=== PATIENT | female | born 1960 | race Caucasian/White ===

== ENCOUNTER 2017-09-03 15:39 | Outpatient (CLI) | payer BC ==
[2017-09-03 16:44] LABS: Hemoglobin 12.6 g/dL (12.0-16.0); Mean Corpuscular HGB CONC 33.9 g/dL (32.0-36.0); Mean Corpuscular Hemoglobin 30.2 pg (27.0-31.0); Mean Platelet Volume 6.9 fL (7.4-10.4); Platelet Count 240 thou/uL (130-400); RBC Distribution Width 11.7 % (11.5-14.5); Red Blood Cell (RBC) Count 4.17 mill/uL (4.20-5.40); White Blood Cell (WBC) Count 5.9 thou/uL (4.8-10.8)
[2017-09-03 17:05] LABS: Anion Gap 11 mmol/L (10-20); BUN (Urea Nitrogen) 24 mg/dL (9.8-20.1); Calc. Creatinine Clearance 0 mL/min (70-130); Calcium 9.6 mg/dL (7.8-10.44); Carbon Dioxide 24 mmol/L (22-29); Chloride 108 mmol/L (98-107); Estimated GFR-MDRD 75; Glucose 96 mg/dL (70-105); Potassium 3.6 mmol/L (3.5-5.1); Sodium 139 mmol/L (136-145)
--- NOTE | 2017-09-05 17:37 | EKG ---
Test Reason : Blood Pressure : / mmHG Vent. Rate : 055 BPM Atrial Rate : 055 BPM P-R Int : 158 ms QRS Dur : 082 ms QT Int : 436 ms P-R-T Axes : 010 -05 020 degrees QTc Int : 417 ms Sinus bradycardia Inferior infarct , age undetermined Abnormal ECG No previous ECGs available Confirmed by DR. Luca CONNOLLY ([id number]) on 09/05/2017 5:37:17 PM Referred By: JIMMY Confirmed By:DR. Luca CONNOLLY
== END 2017-09-03 15:40 | disposition home or self-care (01) ==
LOC: LABBT 15:39
PROVIDERS: ATTEND Podiatrist Foot & Ankle Surgery
DX: Z01.818 Encounter for other preprocedural examination (principal); M72.2 Plantar fascial fibromatosis; M21.611 Bunion of right foot
CPT/HCPCS: 80048; 85027; 93005; 93010

== ENCOUNTER 2017-09-09 10:35 | Day surgery (SDC) | payer BC ==
[2017-09-03 16:04] VITALS: BMI 29.8
[2017-09-09] MEDS ORDERED: CEFAZOLIN/Water 2 GM/20 ML SYRINGE ONE (11:04)
[2017-09-09] MEDS ORDERED: Midazolam HCl 2 mg/2 ml Vial ONE ×2 (11:36→11:57)
[2017-09-09] MEDS ORDERED: Neomycin-Polymyxin 1 ML AMP ONE (11:37)
[2017-09-09] MEDS ORDERED: Bupivacaine 0.5% 10 ML VIAL ONE (11:37)
[2017-09-09] MEDS ORDERED: Fentanyl 250 MCG/5 ML VIAL ONE (11:57)
--- NOTE | 2017-09-09 15:08 | OP ---
DATE OF SURGERY: 09/09/2017 SURGEON: Shira Richard DPM. PREOPERATIVE DIAGNOSES: Bunion, right foot; plantar fasciitis, right foot; calcaneal heel spur, righ t foot. POSTOPERATIVE DIAGNOSES: Bunion, right foot; plantar fasciitis, right foot; calcaneal heel spur, rig ht foot. PROCEDURES PERFORMED: Brian bunionectomy, right foot; plantar fascial release, right foot; resectio n of calcaneal spur, right foot. ANESTHESIA: General with local foot block. HEMOSTASIS: Pneumatic ankle tourniquet at 250 mmHg. ESTIMATED BLOOD LOSS: Less than 10 mL MATERIALS: 2-0 Vicryl, 4-0 Monocryl, and 4-0 Prolene and #1 Synthes 3.0 x 26 mm headless compression screw. INJECTABLES: 30 mL of 0.5% Marcaine plain. PROCEDURE IN DETAIL: The patient was brought into the operating room and placed on the operating tab le in supine position. Well-padded pneumatic ankle tourniquet was placed about the patient's right a nkle. Following administration of IV anesthesia, local foot block was given utilizing 30 mL of 0.5% Marcaine plain. The foot was then scrubbed, prepped and draped in usual aseptic manner. Esmarch ban dage was used to exsanguinate the patient's right foot and the pneumatic ankle tourniquet was then in flated to 250 mmHg, which provided adequate hemostasis throughout the entire procedure. Next, attent ion was then directed to the dorsal aspect of the patient's first metatarsophalangeal joint where a 5 cm linear longitudinal incision was made over the dorsal aspect of the patient's first metatarsophal angeal joint. The incision was deepened through subcuticular structures with care being taken to ret ract all vital neurovascular structures. All bleeders were cauterized as necessary. Next, a T-type capsulotomy was performed exposing the head of the first metatarsal. The prominent medial bone shelf was then carefully resected and passed from the operative field. Next, a Chevron type osteotomy was performed utilizing a sagittal bone saw shifting the head into a more corrected lateral position, wa s held in place with temporary fixation of a guidewire. Next, utilizing techniques and principles of [employer] medical 3.0 x 26 mm screw was placed across the osteotomy site from dorsal, distal, proximal plantar. Fluoroscopy was used to assure proper alignment and correction, all were noted to be corre ct at this time. The remaining medial bone shelf was carefully resected and passed from the operativ e field. The wound was irrigated with copious amounts of sterile normal saline and mixture and th e skin was closed utilizing 2-0 Vicryl for capsular structures and 4-0 Monocryl and 4-0 Prolene for s kin closure. Next, attention was then directed to the medial aspect of the patient's right heel wher e a 3 cm linear longitudinal incision was made upon identification of the calcaneal spur utilizing fl uoroscopy. The incision was deepened through subcuticular structures with care being taken to retrac t all vital neurovascular structures. All bleeders were cauterized as necessary. Next, the medial b and of the plantar fascia was then carefully released from its attachment at the base of the calcaneu s. The calcaneal spur was then identified and carefully resected and passed from the operative field . Fluoroscopy was used to assure that no remaining heel spur remain. None was noted at this time. The wound was irrigated with copious amounts of sterile normal saline and mixture and the deep str uctures were closed utilizing 2-0 Vicryl and the skin was closed utilizing 4-0 Monocryl and 4-0 Prole ne. A light compressive dressing was placed about the patient's right foot and the pneumatic ankle t ourniquet was released with prompt hyperemic response noted to all digits of the right foot. DISCHARGE SUMMARY: The patient tolerated the procedure and anesthesia and was transferred to the rec overy room with vital signs stable and vascular status intact to all digits of the right foot. Kennetho wing a period of postoperative monitoring, the patient is to be discharged home. Should she have any problems prior to the first postoperative appointment, she is advised to call and will be seen withi n 1 week of the procedure, otherwise.
--- NOTE | 2017-09-09 15:19 | RAD ---
RIGHT FOOT THREE VIEWS: History: Foot surgery. FINDINGS: Osteotomy of the first metatarsal neck with surgical remottling of the head and lag screw transfixing the osteotomy are apparent. 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 Lisfranc sana int alignment is maintained. Soft tissue gas is consistent with recent surgery. IMPRESSION: 1. Right foot post-operative changes as detailed above. POS: HELEN
[2017-09-09] MEDS ORDERED: Ondansetron HCl/PF 4 MG/2 ML Vial ONE (16:50)
[2017-09-09] MEDS ORDERED: Ketorolac Tromethamine 30 MG/ML VIAL ONE (16:50)
[2017-09-09] MEDS ORDERED: Lidocaine 1% PF 5 ML VIAL ONE (16:50)
[2017-09-09] MEDS ORDERED: PROPOFOL 200 MG/20 ML VIAL ONE (16:50)
== END 2017-09-09 16:40 | disposition home or self-care (01) ==
LOC: SDC 10:35
PROVIDERS: ATTEND Podiatrist Foot & Ankle Surgery
PROC: 0J8Q0ZZ Division of Right Foot Subcutaneous Tissue and Fascia, Open Approach (ICD-10-PCS; principal; 2017-09-09)
PROC: 0QSN04Z Reposition Right Metatarsal with Internal Fixation Device, Open Approach (ICD-10-PCS; principal; 2017-09-09)
DX: M21.611 Bunion of right foot (principal); M72.2 Plantar fascial fibromatosis; M77.31 Calcaneal spur, right foot; Z79.899 Other long term (current) drug therapy
CPT/HCPCS: 76001; C1713; G8978-GP-CJ; G8979-GP-CJ; G8980-GP-CJ; J1885; J2001; J2250; J2405; J2704; J3010; J3490